=== PATIENT | female | born 2000 | race Caucasian/White ===

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

== ENCOUNTER → 2022-05-17 | Outpatient (CLI) | payer BC ==
--- NOTE | 2022-05-17 10:21 | USB ---
Reason for Exam: Clinical finding. Technique: Method: Whole Breast Handheld. Findings: The whole breast of the right breast, the axilla of the right breast and the retroareolar of the right breast were scanned. Complete right breast ultrasound including evaluation of subareolar and axillary regions. A palpable abnormality 9:00 position no concerning solid or cystic mass or fluid collection is seen. Hypoechoic irregular slightly hypervascular area in the subareolar region could reflect focal prominent tissue with some reactive inflammation related to recent nipple piercing. In the right axilla there is oval well-circumscribed 12 x 8 x 10 mm fairly homogeneous hypoechoic mass with peripheral vascularity could reflect reactive lymph node. Overall Assessment: Probably benign, BI-RAD 3 Management: Diagnostic Breast Ultrasound of the right breast in 2 months. Probable reactive inflammatory changes. Repeat ultrasound in 2 months time is advised to reassess. Electronically signed and approved by: Juan Sheldon M.D.
== END | disposition home or self-care (01) ==
LOC: RADUSWWP 09:43
PROVIDERS: ATTEND Obstetrics & Gynecology
DX: N63.10 Unspecified lump in the right breast, unspecified quadrant (principal)